=== PATIENT | female | born 1965 | race Caucasian/White ===

== ENCOUNTER 2016-11-21 13:49 | Emergency (ER) | payer OTHER, MEDICARE ==
[~2016-11-21] VITALS: Ht 149.9 cm; Wt 71.7 kg
[~2016-11-21 13:49] MED LIST: ACIPHEX 20MG20 MG PO; CARISOPRODOL350 MG PO; CHLORZOXAZONE500 M1 PO; COUMADIN 3 MG TA3 MG PO; DILANTIN 1125 MG/5 M PO; DILANTIN ER 10100 MG PO; DILANTIN PO; DILANTIN100 MG PO; ESCITALOPRAM OX10 MG PO; KEPPRA750 M1 PO; KLONOPIN0.5 MG PO; LASIX20 MG PO; LEVOTHYROXIN0.112 MG PO; LEVOTHYROXINE PO; LEVOTHYROXINE112 MCG PO; LEXAPRO 10MG10 MG PO; LISINOPRIL10 M1 PO; LISINOPRIL20 MG PO; LOVENOX 10100 MG/1 M SC; LYRICA75 M1 PO; MELOXICAM15 MG PO; METFORMIN ER500 MG PO; METFORMIN HCL500 M4 PO; METFORMIN HCL500 MG PO; METOCLOPRAMIDE H5 MG PO; MIRALAX17 GM PO; MULTI-DAY VITA1 EACH PO; MULTIVITAMIN1 TA1 PO; OPANA ER30 MG PO; OXYCODONE HCL15 MG PO; OXYCODONE HYDRO15 MG PO; PANTOPRAZOLE SO40 M1 PO; PHENYTOIN SODI100 M1 PO; PHENYTOIN SODI100 MG PO; PREDNISONE10 M2 PO; ROXICET 325 MG PO; SOMA 350MG TAB350 MG PO; Senokot S PO; VENTOLIN1 PUF INH; VITAMIN D250000 UNIT PO; ZOFRAN ODT4 MG SL
[2016-11-21 13:54] VITALS: BP 151/74
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
[2016-11-21] MEDS ORDERED: TIZANIDINE HCL2 M1 PO (14:12)
[2016-11-21] MEDS ORDERED: CYMBALTA20 M1 PO (14:13)
[2016-11-21] MEDS ORDERED: OXYCODONE HCL15 M1 PO (14:14)
[2016-11-21] MEDS ORDERED: XANAX0.5 M1 PO (14:15)
[2016-11-21] MEDS ORDERED: SOMA350 M1 PO (14:15)
[2016-11-21] MEDS ORDERED: BIOTIN5 M1 PO (14:16)
[2016-11-21] MEDS ORDERED: VITAMIN B-121000 MC3 PO (14:17)
[2016-11-21] MEDS ORDERED: OPANA ER30 M1 PO (14:18)
[2016-11-21] MEDS ORDERED: VITAMIN B-650 M2 PO (14:18)
[2016-11-21] MEDS ORDERED: HYDROXYZINE HCL25 M2 PO (14:20)
[2016-11-21] MEDS ORDERED: ACIPHEX20 M1 PO (14:20)
[2016-11-21] MEDS ORDERED: ASPIRIN81 M4 PO (14:20)
[2016-11-21] MEDS ORDERED: MORPHINE SULFAT15 M4 PO (14:22)
[2016-11-21] MEDS ORDERED: IBUPROFEN800 M1 PO (14:22)
[2016-11-21] MEDS ORDERED: TROKENDI XR200 MG PO (14:24)
[2016-11-21] MEDS ORDERED: MEDROL4 M2 PO (14:44)
[2016-11-21] MEDS ORDERED: KETOROLAC TROME10 M1 PO (14:44)
== END 2016-11-21 15:14 ==
LOC: ERH 13:49
DX: M54.16 Radiculopathy, lumbar region (principal); M54.5 Low back pain
CPT/HCPCS: 96372; J1885